=== PATIENT | male | born 1985 | race Two or more races ===

== ENCOUNTER 2021-06-09 03:35 | Emergency (ER) | payer MEDICAID ==
[~2021-06-09] VITALS: Ht 175.3 cm; Wt 87.7 kg
[2021-06-09] MEDS ORDERED: OLANZAPINE ODT 10MG ONE (04:06)
[2021-06-09] MEDS ORDERED: OLANZAPINE ODT 10MG PO ONE (04:30)
--- NOTE | 2021-06-09 04:42 | NUR ---
Pt reports most recent meth use 6-7 hours ago. Presents to the ER for paranoia and hearing voices. Denies SI.
[2021-06-09 04:57] LABS: BASOPHILS % (AUTO) 0 % (0-1); EOSINOPHILS % (AUTO) 2 % (1-7); LYMPHOCYTES % (AUTO) 15 % (22-44); MEAN CORPUSCULAR HEMOGLOBIN 29.2 pg (27.5-34.5); MEAN CORPUSCULAR HGB CONC 33.6 g/dL (33.2-36.2); MEAN PLATELET VOLUME 7.5 fL (7.4-10.4); MONOCYTES % (AUTO) 10 % (2-9); NEUTROPHILS % (AUTO) 72 % (42-75); PLATELET COUNT 337 x10^3/uL (130-400); RED BLOOD COUNT 5.54 x10^6/uL (4.38-5.82); RED CELL DISTRIBUTION WIDTH 13.6 % (9.4-14.8)
[2021-06-09 05:02] LABS: ALANINE AMINOTRANSFERASE 39 U/L (12-78); ALBUMIN 4.2 g/dL (3.4-5.0); ANION GAP 5 mmol/L (5-15); CALCIUM 9.5 mg/dL (8.5-10.1); CHLORIDE 103 mmol/L (98-107)
[2021-06-09 05:13] LABS: ALKALINE PHOSPHATASE 25 U/L (45-117); BILIRUBIN,TOTAL 0.7 mg/dL (0.2-1.0); CREATININE 1.16 mg/dL (0.7-1.3); TOTAL PROTEIN 8.7 g/dL (6.4-8.2)
[2021-06-09 05:14] LABS: SALICYLATE LEVEL < 1.7 mg/dL (2.8-20.0)
--- NOTE | 2021-06-09 05:27 | NUR ---
S/p po med, pt still paranoid, wants to call the retail service representative. L2K initiated. Pt cooperative with changing. 2 labeled bags placed in locker. Security called for safe keeping of wallet and contents.
[2021-06-09 06:04] LABS: AMPHETAMINE SCREEN, URINE Positive (Negative); BARBITURATE SCREEN, URINE Negative (Negative); BENZODIAZEPINE SCREEN, URINE Negative (Negative); CANNABINOID SCREEN, URINE Positive (Negative); COCAINE SCREEN, URINE Negative (Negative); METHADONE SCREEN, URINE Negative (Negative); OPIATE SCREEN, URINE Negative (Negative)
--- NOTE | 2021-06-09 06:39 | NUR ---
Pt requesting to make phone calls. "I'm ready to leave. I have things to do. I need to call my friend." Pt told he can make a phone call if he knows the number, using hospital phone.
--- NOTE | 2021-06-09 06:54 | NUR ---
Report to HENRRY Saba. To assume full care. Pt awake, in view of sitter.
--- NOTE | 2021-06-09 07:00 | NUR ---
report received from HENRRY Murphy. room secured. pt in gown. sitter monitoring from [facility] for safety.
--- NOTE | 2021-06-09 07:46 | NUR ---
BREAKFAST TRAY NOT IN ED YET. DIETARY PAGED TO DELIVER.
--- NOTE | 2021-06-09 08:21 | NUR ---
pt given SI meal tray, tolerating well. pt a&o, resps even and unlabored. pt denies SI, states he presented to ED for paranoid thoughts. pt denies any further needs. room secure. sitter monitoring from [facility] for safety.
--- NOTE | 2021-06-09 08:45 | NUR ---
RECEIVED REPORT FROM SULTANA SALES. PT UPRIGHT ON GURNEY AWAKE & CALM, DENIES PAIN/NAD, COOPERATIVE & RESPONDS TO STAFF QUESTIONS, COMFORT MEASURES PROVIDED, PT REMAINS IN SAFE ENVIRONMENT, SITTER IN VIEW.
--- NOTE | 2021-06-09 08:55 | NUR ---
report given to HENRRY Kim at bedside. pt a&o, resps even and unlabored. pt making statements that he would like to leave. MD Romero notified. pt denying SI, however does endorse paranoid thoughts. states plan is psych consult. pt informed of POC. psych FOOTWEAR SALES COORDINATOR paged for consult per MD order. Addendum: 06/09/21 at 0901 by HAL report given to HENRRY Kim at bedside. pt a&o, resps even and unlabored. pt making statements that he would like to leave. MD Romero notified. pt denying SI, however does endorse paranoid thoughts. states plan is psych consult. pt informed of POC. psych FOOTWEAR SALES COORDINATOR paged for consult per MD order. room secure. sitter monitoring from [facility] for safety.
[2021-06-09] MEDS ORDERED: LORazepam 1MG TABLET ONE (09:22)
[2021-06-09] MEDS ORDERED: LORazepam 1MG TABLET PO ONE (09:30)
--- NOTE | 2021-06-09 10:05 | NUR ---
PT BECAME MILDLY RESTLESS- REDIRECTABLE BUT STILL MEDICATED PER EMAR, PT AWAKE & CALMER- STATES "IT HELPED A LITTLE", DENIES PAIN, COOPERATIVE & RESPONDS TO STAFF QUESTIONS, COMFORT MEASURES PROVIDED INCL SHOWER, PT REMAINS IN SAFE ENVIRONMENT, SITTER IN VIEW.
--- NOTE | 2021-06-09 11:02 | NUR ---
PT FREQUENTLY STANDING AT DOORWAY, REDIRECTABLE & MOSTLY CALM, DENIES PAIN, COOPERATIVE & RESPONDS TO STAFF QUESTIONS, COMFORT MEASURES PROVIDED, PT REMAINS IN SAFE ENVIRONMENT, SITTER IN VIEW.
--- NOTE | 2021-06-09 12:01 | NUR ---
PT REMAINS MILDLY RESTLESS BUT COOPERATIVE STATING "I WANT TO LEAVE", REDIRECTION REMAINS EFFECTIVE, DENIES PAIN, RESPONDS TO STAFF QUESTIONS, MEAL TRAY GIVEN & OTHER COMFORT MEASURES PROVIDED, PT REMAINS IN SAFE ENVIRONMENT, SITTER IN VIEW.
--- NOTE | 2021-06-09 13:04 | NUR ---
PT SEEN BY PSYCH JUWAN NI & PLACED IN L2K, PT WANDERED TO ANOTHER PTS ROOM STATING "I OWE THAT RYAN MONEY, I NEED TO GET IT SQUARED AWAY." PT REQUIRED FREQUENT REDIRECTION BY MARCY ECHEVERRIA TO RETURN TO ROOM; REMAINS MILDLY RESTLESS BUT IS COOPERATIVE, DENIES PAIN, PT REPORTS INCREASED VH BUT RESPONDS TO STAFF QUESTIONS, NO NEEDS AT THIS TIME, PT REMAINS IN SAFE ENVIRONMENT, SITTER IN VIEW.
[2021-06-09] MEDS ORDERED: HALOPERIDOL 5 MG/ML IM PRN (13:30)
[2021-06-09] MEDS ORDERED: LORazepam 2 MG/ML, 1ML IM PRN (13:30)
[2021-06-09] MEDS ORDERED: DIPHENHYDRAMINE 50 MG/ML, 1ML IM PRN (13:30)
[2021-06-09] MEDS ORDERED: OLANZAPINE 10 MG TABLET PO SCH (13:30)
[2021-06-09] MEDS ORDERED: HALOPERIDOL 5 MG/ML ONE (13:40)
[2021-06-09] MEDS ORDERED: DIPHENHYDRAMINE 50 MG/ML, 1ML ONE (13:40)
[2021-06-09] MEDS ORDERED: LORazepam 2 MG/ML, 1ML ONE (13:40)
--- NOTE | 2021-06-09 14:02 | NUR ---
PT MILDLY RESTLESS BUT COOPERATIVE & CONTINUES TO STATE "I WANT TO LEAVE", REDIRECTION REMAINS EFFECTIVE & IS AGREEABLE TO PRN MED- MEDICATED PER EMAR, DENIES PAIN, RESPONDS TO STAFF QUESTIONS, NO NEEDS AT THIS TIME, PT REMAINS IN SAFE ENVIRONMENT, SITTER IN VIEW.
--- NOTE | 2021-06-09 15:00 | NUR ---
REPORT GIVEN TO LATOYA SALES
--- NOTE | 2021-06-09 15:01 | NUR ---
REPORT FROM ABHIJIT SALES
--- NOTE | 2021-06-09 15:09 | NUR ---
ZAHRAA RN: RECEIVED A CALL FROM [facility], STATES THEY ARE UNABLE TO TAKE PATIENT DUE TO INSURANCE
--- NOTE | 2021-06-09 15:19 | NUR ---
PT RESTING IN [facility]. RESP EVEN AND UNLABORED. SI PRECUATIONS IN PLACE, SITTER AT DOORWAY
--- NOTE | 2021-06-09 15:30 | NUR ---
PSYCH PACKET FAXED TO [facility], [facility], [facility], [facility], [facility]. FAX CONFIRMATION RECEIPT RECEIVED.
--- NOTE | 2021-06-09 15:35 | NUR ---
THROUGHPUT RN NOTE: [facility] CALLED TO NOTIFY THEY ARE AT [facility] BUT WILL CALL [facility] BACK WHEN SLOT IS AVAILABLE FOR PT, [facility] WILL ACCEPT IF PT REMAINS AT [facility] ED AT THAT TIME.
--- NOTE | 2021-06-09 17:34 | NUR ---
PT SLEEPING, RESP EVEN AND UNLABORED. SI DINNER TRAY PLACED AT BEDSIDE
--- NOTE | 2021-06-09 18:09 | NUR ---
PT AWAKE, REQUESTING TO USE BATHROOM. HAS STEADY INDEPEDENT GAIT. STILL SLEEPY
--- NOTE | 2021-06-09 18:21 | NUR ---
[facility] denied patient as they are not contracted with patients insurance.
--- NOTE | 2021-06-09 18:45 | NUR ---
REPORT GIVEN TO ABDOULAYE SALES
--- NOTE | 2021-06-09 18:48 | NUR ---
BEDSIDE REPORT FROM LATOYA SALESIT SERVICE DELIVERY MANAGER OF CARE AT THIS TIME.
--- NOTE | 2021-06-09 19:45 | NUR ---
PT RESTING ON GURNEY RESP EVEN UNLABORED, MAYRA, SITTER IN SIGHT FOR CONTINUED SAFETY
--- NOTE | 2021-06-09 20:38 | NUR ---
PT RESTING ON GURNEY RESP EVEN UNLABORED, MAYRA, SITTER IN SIGHT FOR CONTINUED SAFETY
--- NOTE | 2021-06-09 21:42 | NUR ---
PT RESTING ON GURNEY RESP EVEN UNLABORED, MAYRA, SITTER IN SIGHT FOR CONTINUED SAFETY
--- NOTE | 2021-06-09 22:36 | NUR ---
PT RESTING ON GURNEY RESP EVEN UNLABORED, MAYRA, SITTER IN SIGHT FOR CONTINUED SAFETY
--- NOTE | 2021-06-10 00:05 | NUR ---
PT RESTING ON GURNEY RESP EVEN UNLABORED, MAYRA, SITTER IN SIGHT FOR CONTINUED SAFETY
--- NOTE | 2021-06-10 01:10 | NUR ---
REPORT RECEIVED FROM PRIOR RN. PT RESTING ON HOSPITAL BED RESP EVEN UNLABORED, MAYRA, SITTER IN SIGHT FOR CONTINUED SAFETY
--- NOTE | 2021-06-10 03:09 | NUR ---
PT RESTING ON GURNEY RESP EVEN UNLABORED, MAYRA, SITTER IN SIGHT FOR CONTINUED SAFETY
--- NOTE | 2021-06-10 03:34 | NUR ---
TASK RN: PT RESTING ON HOSPTIAL BED AT THIS TIME, RESP EVEN AND UNLABORED, MAYRA, SITTER IN SIGHT FOR SAFETY.
--- NOTE | 2021-06-10 05:17 | NUR ---
PT RESTING ON HOSPITAL BED RESP EVEN UNLABORED, MAYRA, SITTER IN SIGHT FOR CONTINUED SAFETY
[2021-06-10] MEDS ORDERED: OLANZAPINE 10 MG TABLET ONE (07:02)
--- NOTE | 2021-06-10 07:14 | NUR ---
report from madeline ba. as
[2021-06-10 08:12] VITALS: BP 105/71
== END 2021-06-10 09:35 | disposition home or self-care (01) ==
LOC: ED 09:01 → UNDOADMOB 12:49 → EDIP 12:49
DX: R45.851 Suicidal ideations (principal); F15.121 Other stimulant abuse with intoxication delirium; F17.210 Nicotine dependence, cigarettes, uncomplicated
CPT/HCPCS: 36415; 80053; 80299; 80307; 80320; 84443; 85025; 96372; 99284; 99406; J1200; J1630; J2060; 80329; G0480